=== PATIENT | female | born 1980 | race Caucasian/White ===

== ENCOUNTER → 2019-04-13 17:40 | Outpatient (CLI) | payer BC, SELFPAY ==
--- NOTE | ~2019-04-13 | MR_ITS ---
EXAMINATION: MR ankle LT wo con DATE: 04/13/2019 18:27 INDICATION: Left ankle pain with pain at the left ankle joint and joints of the left foot. TECHNIQUE: Magnetic resonance imaging (MRI) of the left ankle was performed without intravenous contr ast. Sequences included sagittal, coronal, and axial proton-density weighted fast spin echo without a nd with fat saturation. COMPARISON: None. FINDINGS: Medial ankle ligaments: Deep and superficial deltoid ligaments as well as the spring ligament are normal. Lateral ankle ligaments: The anterior and posterior inferior tibiofibular ligaments are normal. The anterior talofibular, calc aneofibular and posterior talofibular ligaments are normal. Tendons: Achilles tendon is normal. The peroneus longus and brevis tendons are normal. There is however a low- lying peroneus brevis muscle belly with distalmost aspect of the myotendinous junction positioned jluis roximately 1.2 cm caudal to the tip of the lateral malleolus. There is mild edema along the myotendin ous junction of the peroneus brevis slightly cephalad to the level of the retromalleolar groove. The tibialis anterior and extensor hallucis longus and extensor digitorum longus tendons are normal. The tibialis posterior, flexor digitorum longus and flexor hallucis longus tendons are normal. Plantar fascia: Panter aponeurosis is normal. Bones/other: Bone alignment is normal. No fracture. There is prominent marrow edema in the calcaneus and talus charli tered about the posterior facet of the subtalar joint. There is irregular contour to the cartilage an d articular cortex along the majority of the of both articular surfaces. This could be related to ost eoarthritis with extensive high-grade chondromalacia and marginal hypertrophic osteophyte formation. The appearance however also suggests possibility of a cartilaginous coalition particularly towards th e medial side of the joint line continuing to where the talus appears to articulate with the posterio r margin of the sustentaculum adri. Remaining joint spaces at the ankle, mid and hindfoot appear rela tively preserved. Small enthesophytes at the calcaneal insertion of the Achilles tendon. Fluid: Physiologic amount of fluid in the joint spaces with amount of fluid and mild synovitis at the representative personal service ior recess of the ankle and subtalar joints which surrounds a normal os trigonum which lies adjacent to marginal osteophytes at the posterior aspect of the subtalar joint. Appearance raises the possibil ity of posterior hindfoot impingement. Small ganglion cyst which appears to arise from the posteromed ial aspect of the tibiotalar joint which extends between the flexor digitorum longus and flexor hallu cis longus tendon. IMPRESSION: 1. Prominent marrow edema along both sides of the subtalar joint where there is arthritis with both i rregular cartilage and cortical contours consistent with high-grade chondromalacia. Appearance partic ularly at the medial side of the joint spaces overall also raises the concern for at least partial ca rtilaginous talocalcaneal coalition. 2. Low-lying peroneus brevis muscle belly with mild muscular edema along the myotendinous junction. P eroneal tendons however remain normal. 3. Appearance suggestive of possible posterior hindfoot impingement. Reviewed, dictated and finalized at location A. ROAD CONSTRUCTION DIRECTOR IMPRESSION: 1. Prominent marrow edema along both sides of the subtalar joint where there is arthritis with both irregular cartilage and cortical contours consistent with high-grade chondromalacia. Appearance particularly at the medial side of the elpidio int spaces overall also raises the concern for at least partial cartilaginous t alocalcaneal coalition. 2. Low-lying peroneus brevis muscle belly with mi
== END ==
PROVIDERS: Visit Provider Orthopaedic Surgery
DX: M25.572 Pain in left ankle and joints of left foot (principal); R93.6 Abnormal findings on diagnostic imaging of limbs
CPT/HCPCS: 73721

== ENCOUNTER 2019-07-15 00:14 | Outpatient (CLI) | payer BC, SELFPAY ==
[2019-07-15 15:54] LABS: SARS-CoV-2 RNA PCR Negative
== END 2019-07-15 00:15 | disposition home or self-care (01) ==
PROVIDERS: PCP Family Medicine; Visit Provider Orthopaedic Surgery
DX: Z01.818 Encounter for other preprocedural examination (principal); Z11.59 Encounter for screening for other viral diseases
CPT/HCPCS: 87635; C9803; U0003

== ENCOUNTER 2019-07-18 03:07 | Day surgery (SDC) | payer BC, SELFPAY ==
[2019-07-06 14:30] VITALS: BMI 39.0
[2019-07-18] VITALS (7 sets, daily range): BP systolic 97–133; BP diastolic 62–93; PULSE 63–78; RESP 16–20; TEMP 36.8; O2SAT 95–100
[2019-07-18] MEDS: LACTATED RINGERS 1,000 ML 30 ML IV CONT (11:40)
--- NOTE | 2019-07-18 11:46 | WPDHPUPDATE1 ---
History and Physical Update Update Date/Time: 07/18/19 11:46 History and Physical has been reviewed, including an updated exam of the patient. There are NO changes in the patient's condition. Risks, benefits, and alternatives have been discussed and questions answered. Patient agrees to proceed with procedure. Exam Const Constitutional General: healthy appearing; No in distress or confusion Orientation/consciousness: oriented to person, oriented to place, oriented to time and No confusion HENMT Head: normal to inspection, normocephalic and atraumatic Eyes Conjunctivae: Yes conjunctivae normal Sclera: sclerae normal Neck Neck: Yes supple and No tender Chest Chest palpation & inspection: normal inspection of the chest Resp Effort & Inspection: normal respiratory effort and no audible wheezes Cardio Rate: Yes regular rate Rhythm: regular rhythm Skin General skin exam: no rashes or lesions noted Neuro General: Yes oriented to person, Yes oriented to place, Yes oriented to time and No confusion Extrem Right upper extremity: normal to inspection Left upper extremity: normal to inspection Other: Foot/ ankle exam Right location Right inspection nml Right stability good Left location Left inspection nml Left stability good Tests Right external rotation negative Right flexor hallucis longus triggering negative Right Nancy?s sign negative Right Midfoot compression negative Right MTP Jonas?s negative Right Peroneal subluxation negative Right Single toe raise negative Right Dejesus?s negative Left external rotation positive Left flexor hallucis longus triggering negative Left Nancy?s sign negative Left Midfoot compression negative Left MTP Jonas?s negative Left Peroneal subluxation positive Left Single toe raise positive Left Dejesus?s negative Right Anterior drawer normal Right Talar tilt normal Right Subtalar tilt normal Right Nav?s test negative Left Anterior drawer normal Left Talar tilt normal Left Subtalar tilt decreased Left Nav?s test negative Other exams Comments: left ankle with moderate swelling peroneal tendon sheath. Tender to palpation. Pain with resisted Eversion . Peroneal strength 4/5 active ankle range of motion 0/ 40 , subtalar 10/5 . Passive ankle motion 0/45 , subtalar 10/5. Psych Affect: Yes normal affect Assessment & Plan (1) Peroneal tendinitis of left lower leg: Code(s): M76.72 - Peroneal tendinitis, left leg Category: Medical Plan: Three months more of conservative treatment. Patient with no improvement. Continues to have pain and swelling over the posterolateral left ankle.Discussed nonoperative and operative treatment options with the patient. Risks and benefits of each as well as alternatives were reviewed. All of the patient's questions were answered. The risks of surgery reviewed including but not limited to: Neurovascular damage, wound complication, infection, blood clot, pulmonary embolus, stroke, myocardial infarction, and anesthetic risks up to and including . Continued pain and possible dysfunction were explained. Specific risks of the procedure including later recurrence of deformity. No guarantees were offered. If hardware used, discussed risk of failure/ breakage and possible need for removal. If complications occur, the patient understands the need for further treatment, possible further surgery. Patient verbalizes understanding and wishes to proceed. PLAN: left ankle peroneal tendon reconstruction (2) Arthritis of left subtalar joint: Code(s): M19.072 - Primary osteoarthritis, left ankle and foot Category: Medical Plan: Discussed condition with the patient. The nonoperative and operative treatment options reviewed. Risks and benefits of Cortisone injection as well as alternatives were reviewed. All of the patient's questions were answered. The risks of injection were reviewed i
[2019-07-18] MEDS: IBUPROFEN IV 800 MG/200 ML 800 MG/200 ML BAG 400 MG IVPB (11:50)
--- NOTE | 2019-07-18 12:35 | P.PNAN_ITS ---
Anes - Initial Pre Proc Eval Procedure: Operation Date: 07/18/19 13:00 Proposed Procedures p Left Ankle Peroneal Tendon Reconstruction, Subtalar And Posterior Cortisone Joint Injection - Dayron Gutiérrez MD Date/Time: 07/18/19 12:35 Surgeon: Dayron Gutiérrez MD Pre Op Diagnosis: Left Aknle Perineal Tendon Tear/Subtalar Arthritis Patient Data Age: 38 Gender: F Height: 5 ft 3 in Weight: 108 kg Last Vital Signs Temp 98.2 F 07/18/19 12:00 Pulse 72 07/18/19 12:00 Resp 20 07/18/19 12:00 BP 133/84 07/18/19 12:00 Pulse Ox 100 07/18/19 12:00 Allergies Allergy/AdvReac Type Severity Reaction Status Date / Time dextromethorphan AdvReac Intermediate SHORTNESS Verified 07/12/19 11:10 OF BREATH Home Medications Medication Instructions Recorded Confirmed Type bupropion HCl 150 mg 24 hr tablet, 150 mg PO QAM 12/20/18 07/18/19 History extended release sertraline 100 mg tablet 100 mg PO DAILY 12/20/18 07/18/19 History Patient hx anesthesia problems: none Family hx anesthesia problems: none [facility] Social History Social History Smoking status: Never smoker Alcohol intake: current Substance use: unknown Gender identity (if verbalized by the patient): Female Anes - Eval Final PreProcedure Day of Procedure 07/18/19 12:35 Patient weight: morbidly obese Heart: regular rate and rhythm Lungs: clear to auscultation Airway: Mallampati scale class II Neurological: alert and oriented Last oral intake: >/= 8 hours ASA classification: III Emergent: no Anesthetic plan: proceed Anesthesia type and monitoring: general LMA and standard monitoring Informed Consent: The patient's anesthetic plan and its attendant risks and benefits were discussed with the patient/family/POA. Questions were solicited and answers provided to the satisfaction of the patient/family/POA.
[2019-07-18] MEDS: ceFAZolin 2 GM/D5W 50 ML 2 GM/50 ML BAG IVPB (12:40)
[2019-07-18] MEDS: methylPREDNISolone ACETATE 80 MG/ML VIAL IM (13:18)
--- NOTE | 2019-07-18 14:09 | P.OP_ITS ---
Procedure Note - Detailed Date of procedure: 07/18/19 Pre-op diagnosis: Left Aknle Perineal Tendon Tear/Subtalar Arthritis Post-op diagnosis: same Procedure performed: Left ankle peroneal tendon reconstruction, cortisone injection subtalar joint Description of procedure: Indications: Patient is a 38-year-old woman with left ankle pain. Exam findings consistent with peroneal tendon dysfunction. Responded well to cortisone injection. MRI shows inflammation. MRI also shows degenerative changes of the subtalar joint. She has failed conservative treatment with bracing, therapy, injections and presents now for operative treatment. What was done: Patient identified in the preoperative holding. Informed consent given. Operative extremity marked. Patient received intravenous antibiotics. Patient brought to the operating room where underwent general anesthetic by anesthesia team. Positioned supine on operating room table. Time-out performed confirming the patient, site of the surgery and the plan. Bump placed under the left hip. Left lower extremity prepped draped usual sterile surgical fashion using ChloraPrep skin solution. Foot and ankle exsanguinated and a thigh tourniquet inflated to 250 mmHg. Local anesthetic with 0.5% Marcaine plain. Curvilinear incision made over the lateral ankle posterior to the fibula extending to the peroneal tubercle of the calcaneus. This done with a 15 blade knife. Hemostasis controlled electrocautery. A torturous vein noted at the retro fibular area. This was ligated at the distal extent and removed with Bovie cautery. Peroneal tendon sheath then incised in line with skin incision. Peroneals inspected. Peroneal brevis noted to have a split partial tear at the retro fibular area involving approximately 20% of the tendon. Torn portion excised with 15 blade knife. Peroneus longus noted to have a low-lying muscle belly and significant synovitis. This was sharply removed with a 15 blade knife. Tourniquet was released and bleeding points were coagulated. Tendon sheath thoroughly irrigated with antibiotic solution. Sheath closed with 3 Monocryl interrupted suture. Subcutaneous tissue repaired with 3 0 Monocryl interrupted suture and skin repaired with 3 Monocryl running subcuticular stitch. Steri-Strips applied to the skin. 22 gauge needle was then used to inject 40 mg of Depo-Medrol into the subtalar joint from the sinus tarsi. 40 mg Depo-Medrol injected into the retrocalcaneal bursa. Sterile dressing applied followed by a well-padded splint. The patient was then woken from anesthesia, extubated and taken to the recovery room in stable condition. All sponge, needle, instrument counts were correct at the end of the case. Implants: None Anesthesia: GLMA Surgeon: Dayron Gutiérrez MD Bradley Linebacker Crewmember: 1st leasing assistant Estimated blood loss (mL): 10 Tourniquet time (min): 15 Drains: No Packing: No Pathology: none sent Complications: None Condition: stable Disposition: PACU
== END 2019-07-18 15:20 | disposition home or self-care (01) ==
PROVIDERS: PCP Family Medicine; Visit Provider Orthopaedic Surgery
PROC: (CPT 27650; principal; 2019-07-18 13:00)
DX: M66.372 Spontaneous rupture of flexor tendons, left ankle and foot (principal); M76.72 Peroneal tendinitis, left leg; M19.072 Primary osteoarthritis, left ankle and foot; E66.01 Morbid (severe) obesity due to excess calories; Z68.41 Body mass index [BMI] 40.0-44.9, adult
CPT/HCPCS: 28200; J0690; J1040; J1741; J2250; J2704; J3010; J7120

== ENCOUNTER 2020-02-20 11:28 | Outpatient (CLI) | payer BC, SELFPAY ==
--- NOTE | ~2020-02-20 | XR_ITS ---
EXAMINATION: XR knee LT min 4V DATE: 02/20/2020 11:57 INDICATION: Left knee pain. TECHNIQUE: 4 views of left knee were obtained. COMPARISON: None. FINDINGS: Bone alignment is normal. No fracture. There is mild tricompartmental osteoarthritis. There is a small knee joint effusion. IMPRESSION: 1. Mild left knee osteoarthritis. 2. Small left knee joint effusion. Reviewed, dictated and finalized at location A. WORKING MACHINE OFFBEARER
== END 2020-02-20 11:29 | disposition home or self-care (01) ==
LOC: ANHIMG 11:32
PROVIDERS: PCP Family Medicine; Visit Provider Family Medicine
DX: M17.12 Unilateral primary osteoarthritis, left knee (principal); M25.462 Effusion, left knee
CPT/HCPCS: 73564

== ENCOUNTER → 2020-07-09 02:12 | Outpatient (CLI) | payer BC, SELFPAY ==
[2020-07-09 17:04] LABS: SARS-CoV-2 RNA PCR Negative
== END ==
PROVIDERS: PCP Family Medicine; Visit Provider Orthopaedic Surgery
DX: Z01.812 Encounter for preprocedural laboratory examination (principal); Z20.822 Contact with and (suspected) exposure to COVID-19
CPT/HCPCS: C9803; U0003; U0005

== ENCOUNTER 2020-07-12 01:01 | Day surgery (SDC) | payer BC, SELFPAY ==
[2020-07-02 15:33] VITALS: BMI 38.7
[2020-07-12] VITALS (9 sets, daily range): BP systolic 99–128; BP diastolic 71–92; PULSE 76–90; RESP 14–20; TEMP 36.1–36.4; O2SAT 93–99
--- NOTE | ~2020-07-12 | XR_ITS ---
EXAMINATION: XR surgery orthopedic DATE: 07/12/2020 08:57 INDICATION: Excision/debridement of the left foot TECHNIQUE: 2 fluoroscopic images of the left hindfoot were obtained during procedure performed by Dr. Gutiérrez. Radiologist was not present for the imaging or procedure. The amount of fluoroscopy time us ed during this procedure was 0.1 minutes. COMPARISON: None. FINDINGS: Interval resection of a prior prominent os trigonum with small amount of tissue gas at the operative bed. Alignment is normal. No fracture. Peripheral portions of the joint spaces appear normal. Tiny Ac hilles and plantar calcaneal spurs. IMPRESSION: 1. Fluoroscopy utilized during resection of an os trigonum. See procedure note for further detail. Reviewed, dictated and finalized at location A.
[2020-07-12] MEDS: ACETAMINOPHEN 500 MG TABLET 1000 MG PO (06:42)
[2020-07-12] MEDS: LACTATED RINGERS 1,000 ML 30 ML IV CONT (06:45)
[2020-07-12] MEDS: KETOROLAC 15 MG/ML VIAL (*BKC) IV PUSH (06:50)
--- NOTE | 2020-07-12 07:02 | WPDANESEPPF ---
Anes - Initial Pre Proc Eval Procedure: Operation Date: 07/12/20 07:30 Proposed Procedures p Left Os Trigonum Excision, Debride Subtalar Joint - Dayron Gutiérrez MD Date/Time: 07/12/20 07:02 Surgeon: Dayron Gutiérrez MD Pre Op Diagnosis: Left Os Trigonum Excision, Patient Data Age: 39 Gender: F Height: 5 ft 3 in Weight: 99.34 kg Allergies Allergy/AdvReac Type Severity Reaction Status Date / Time dextromethorphan Allergy Severe SHORTNESS Verified 07/12/20 06:36 OF BREATH/ELEVATED HR/ MASSIVE PANIC ATTACK Home Medications Medication Instructions Recorded Confirmed Type sertraline 100 mg tablet 100 mg PO DAILY 12/20/18 07/12/20 History bupropion HCl 150 mg 24 hr tablet, 300 mg PO QAM tablet 06/22/20 07/12/20 History extended release multivitamin 1 tablet PO DAILY 07/02/20 07/12/20 History Patient hx anesthesia problems: none Family hx anesthesia problems: none PMFSH Past Medical History Medical History Aftercare following surgery of the musculoskeletal system Anxiety Arthritis of left subtalar joint Chondromalacia Depression Effusion, left knee GERD (gastroesophageal reflux disease) IBS (irritable bowel syndrome) Impingement of left ankle joint Left knee pain Os trigonum syndrome Patellofemoral pain syndrome Retrocalcaneal bursitis Tendinitis of left flexor hallucis longus Weight gain Social History Social History Smoking packs per day: 0.5 Smoking cigarettes per day: 10.0 Years smoked: 19 Smoking pack-years: 9.50 Smoking status: Former smoker Smoking end date: 02/10/16 Alcohol intake: never Substance use: never Substance use type: does not use Living arrangements: with family Gender identity (if verbalized by the patient): Female Spiritual care concerns: No Anes - Eval Final PreProcedure Day of Procedure 07/12/20 07:02 Patient weight: obese Heart: regular rate and rhythm Lungs: decreased breath sounds Airway: Mallampati scale class II Neurological: alert and oriented Last oral intake: >/= 8 hours ASA classification: III Emergent: no Anesthetic plan: proceed Anesthesia type and monitoring: general LMA and standard monitoring Informed Consent: The patient's anesthetic plan and its attendant risks and benefits were discussed with the patient/family/POA. Questions were solicited and answers provided to the satisfaction of the patient/family/POA.
--- NOTE | 2020-07-12 07:03 | WPDHPUPDATE1 ---
History and Physical Update Update Date/Time: 07/12/20 07:03 History and Physical has been reviewed, including an updated exam of the patient. There are NO changes in the patient's condition. Covid test negative. Risks, benefits, and alternatives have been discussed and questions answered. Patient agrees to proceed with procedure.
[2020-07-12] MEDS: ceFAZolin 2 GM/D5W 50 ML 2 GM/50 ML BAG IVPB (07:24)
--- NOTE | 2020-07-12 07:41 | SUR.PREOP ---
0640-PT HAS SCABBED AREAS FROM SANDALS ON TOP OF BILATERAL FEET. SCABBED AREA ON OUTER RIGHT LOWER LEG FROM DOG . 0720-DR. TOURE AWARE OF ABOVE, NOTED AND WILL PROCEED.
[2020-07-12] MEDS: BUPIVACAINE HCL 0.5% PF 30 ML VIAL INFILTRATE (08:57)
--- NOTE | 2020-07-12 09:36 | P.OP_ITS ---
Procedure Note - Detailed Date of procedure: 07/12/20 Pre-op diagnosis: Left Os Trigonum Excision, Left ankle os trigonum syndrome, flexor hallucis longus tenosynovitis, subtalar chondromalacia. Post-op diagnosis: same Procedure performed: Left ankle excision of os trigonum, flexor hallucis longus tenosynovectomy, debridement subtalar joint. Description of procedure: Indications: Patient is a 39-year-old woman with posterior left ankle pain. MRI shows os trigonum inflammation consistent with os trigonum syndrome. Improved with diagnostic injection. Presents now for operative treatment having failed non operative treatment including physical therapy, bracing and activity modification. What was done: Patient identified in the preoperative holding. Informed consent given. Operative extremity marked. Patient received intravenous antibiotics. Patient brought to the operating room where underwent general anesthetic by anesthesia team. Positioned supine on operating room table. Time-out performed confirming the patient, site of the surgery and the plan. Left lower extremity prepped draped usual sterile surgical fashion using a ChloraPrep skin solution. Foot and ankle exsanguinated and a thigh tourniquet inflated to 250 mmHg. Medial approach was utilized. A curvilinear incision made posterior to the medial malleolus with a 15 blade knife. Hemostasis controlled electrocautery. Medial retinaculum incised line with skin incision. Care was taken to identify the neurovascular bundle which was retracted posteriorly along with the flexor hallucis longus tendon. This allowed access to the medial aspect of the posterior ankle and subtalar joint where a degenerative and inflamed appearing os trigonum was encountered. Soft tissue was freed up from the os trigonum this was removed in 1 large piece and several surrounding small osteophytes. This was passed off as specimen. Image intensification was used to confirm resection of all of the os trigonum. Posterior ankle joint appeared without defect. The posterior subtalar joint was then inspected noted to have degenerative changes. Rongeur was used to remove the osteophytes and degenerative portions of the posterior facet of subtalar joint. This was then thoroughly irrigated antibiotic solution. Flexor hallucis longus tendon was then inspected noted to have significant synovitis. This was resected with a 15 blade knife sharply. The hallux was taken through range of motion there was no impingement of the FHL. Thorough irrigation done once again. Soft tissue then closed with 3 0 Monocryl interrupted suture in the subcuticular area and for O nylon running suture for the skin. Sterile dressing applied. The patient was then woken from anesthesia, extubated and taken to the recovery room in stable condition. All sponge, needle, instrument counts were correct at the end of the case. Implants: None Anesthesia: GLMA Surgeon: Dayron Gutiérrez MD Stave Log Cut Off Saw Operator: 1st higher level teaching assistant Estimated blood loss (mL): 5 Tourniquet time (min): 60 Drains: No Packing: No Pathology: yes (Os trigonum) Complications: None Condition: stable Disposition: PACU
--- NOTE | 2020-07-12 09:38 | SUR.PHASEI ---
O2 removed at 0938.
== END 2020-07-12 10:47 | disposition home or self-care (01) ==
PROVIDERS: PCP Family Medicine; Visit Provider Orthopaedic Surgery
PROC: (CPT 28750; principal; 2020-07-12 07:30)
DX: M65.872 Other synovitis and tenosynovitis, left ankle and foot (principal); M94.272 Chondromalacia, left ankle and joints of left foot; M25.872 Other specified joint disorders, left ankle and foot; M19.072 Primary osteoarthritis, left ankle and foot; F41.8 Other specified anxiety disorders; Z87.891 Personal history of nicotine dependence; E66.9 Obesity, unspecified; Z68.41 Body mass index [BMI] 40.0-44.9, adult
CPT/HCPCS: 28120; 27680; 88304; 88309; 88311; A9270; J0690; J1100; J1885; J2250; J2405; J2704; J3010; J7120

== ENCOUNTER 2020-11-05 10:10 | Emergency (ER) | payer BC, SELFPAY ==
--- NOTE | ~2020-11-05 | XR_ITS ---
EXAMINATION: XR shoulder LT min 2V DATE: 11/05/2020 10:31 INDICATION: Posterior left shoulder pain post ground-level fall. TECHNIQUE: AP internally and externally rotated, AP oblique externally rotated and transscapular Y vi ews of the left shoulder were obtained. COMPARISON: None FINDINGS: Normal alignment. No fracture. Linear lucent vascular channel extending across inferior cortex of th e mid left clavicle which can be seen on chest radiograph dated 05/22/2015. Glenohumeral joint is norm al. Acromioclavicular joint is normal. Soft tissues are unremarkable. Visualized portion of the lungs are clear. IMPRESSION: Negative left shoulder radiographs. Reviewed, dictated and finalized at location A.
--- NOTE | ~2020-11-05 | XR_ITS ---
EXAMINATION: XR foot LT min 3V DATE: 11/05/2020 10:32 INDICATION: Pain at the proximal left great toe post fall TECHNIQUE: Dorsoplantar, two oblique and lateral views of the left foot were obtained. COMPARISON: None. FINDINGS: 40 degrees hallux valgus including mild lateral subluxation of the proximal phalanx. Bone alignment i s otherwise normal. No fracture. Joint spaces are normal. Soft tissues are unremarkable. No left ankl e joint effusion. IMPRESSION: 1. Hallux valgus. No acute osseous abnormality. Reviewed, dictated and finalized at location A.
[2020-11-05 10:37] VITALS: BP 123/89; PULSE 92; RESP 18; TEMP 36.7; O2SAT 100
--- NOTE | 2020-11-05 12:45 | ED.UPPEXIN ---
HPI - Extremity Injury (Upper) General Chief Complaint: Extremity Injury, Upper Stated Complaint: Left Shoulder Pain after Fall Time Seen by Provider: 11/05/20 12:27 Source: patient and family Mode of arrival: ambulatory Limitations: no limitations History of Present Illness HPI narrative: 39 years old white female tripped on her dog and fell down have, complaining of left shoulder pain, left forearm pain, denies any other injuries. No loss of consciousness. And 1/2-hour prior to arrival to the emergency room. Related Data Home Medications Medication Instructions Recorded Confirmed sertraline 100 mg tablet 100 mg PO DAILY 12/20/18 09/19/20 bupropion HCl 150 mg 24 hr tablet, 300 mg PO QAM tablet 06/22/20 09/19/20 extended release multivitamin 1 tablet PO DAILY 07/02/20 09/19/20 Allergies Allergy/AdvReac Type Severity Reaction Status Date / Time dextromethorphan Allergy Severe SHORTNESS Verified 11/05/20 11:01 OF BREATH/ELEVATED HR/ MASSIVE PANIC ATTACK Review of Systems Review of Systems: CONSTITUTIONAL: Denies fever, chills, or sweats. EYES: Denies visual changes, redness, or discharge. ENT: Denies rhinorrhea, congestion, sore throat, or otalgia. CARDIOVASCULAR: Denies chest pain, palpitations, or edema. RESPIRATORY: Denies cough or dyspnea. GASTROINTESTINAL: Denies abdominal pain, nausea, vomiting, or diarrhea. GENITOURINARY: Denies dysuria or hematuria. SKIN: Denies rash or itching. MUSCULOSKELETAL: Denies back pain, joint pain, or myalgia. NEUROLOGIC: Denies headache, numbness, or weakness. PSYCHIATRIC: Denies anxiety or depression. [facility] Past Medical History Medical History Aftercare following surgery of the musculoskeletal system Anxiety Arthritis of left subtalar joint Chondromalacia Depression Effusion, left knee GERD (gastroesophageal reflux disease) IBS (irritable bowel syndrome) Impingement of left ankle joint Left knee pain Os trigonum syndrome Patellofemoral pain syndrome Retrocalcaneal bursitis Tendinitis of left flexor hallucis longus Weight gain Social History Social History Smoking packs per day: 0.5 Smoking cigarettes per day: 10.0 Years smoked: 19 Smoking pack-years: 9.50 Smoking end date: 02/10/16 Alcohol intake: never Substance use: never Substance use type: does not use Gender identity (if verbalized by the patient): Female Spiritual care concerns: No Exam Narrative: General appearance: Well-developed, well-nourished Skin: Normal color Head: Normocephalic, nontraumatic Eyes: Clear conjunctiva ENT: Oropharynx normal, ears normal, nose normal Neck: Supple, nontender Chest and respiratory: Airway patent, no respiratory distress, no accessory muscle use Heart: Regular rate/rhythm Abdomen: Soft, nontender, no organomegaly, quiet bowel sounds Vascular: Normal peripheral pulses, normal capillary refill. Musculoskeletal: Mild diffuse tenderness deltoid area at the left shoulder. No bruises, no swelling or deformity. Diffuse tenderness of medial side of left foot at the bunion area, slightly bruised, no deformity Neurologic: Alert and oriented ?3, SEWER DIGGER is normal as tested, no gross motor deficit Course Course Emergency Course: Stable Vital Signs Vital signs: Vital Signs Temperature 36.7 C 11/05/20 10:37 Pulse Rate 92 11/05/20 10:37 Respiratory Rate 18 11/05/20 10:37 Blood Pressure 123/89 11/05/20 10:37 Pulse Oximetry 100 11/05/20 10:37 Temperature 36.7 C 11/05/20 10:37 Pulse Rate 92 11/05/20 10:37 Respiratory Rate 18
[2020-11-05] MEDS: IBUPROFEN 600 MG TABLET PO (13:12)
[2020-11-05] MEDS: ACETAMINOPHEN 325 MG TABLET 650 MG PO (13:12)
== END 2020-11-05 14:32 | disposition home or self-care (01) ==
PROVIDERS: Emergency Provider Emergency Medicine; PCP Family Medicine
DX: S40.012A Contusion of left shoulder, initial encounter (principal); S90.32XA Contusion of left foot, initial encounter; F32.9 Major depressive disorder, single episode, unspecified; F41.9 Anxiety disorder, unspecified; K58.9 Irritable bowel syndrome, unspecified; M19.072 Primary osteoarthritis, left ankle and foot; F17.210 Nicotine dependence, cigarettes, uncomplicated; M20.12 Hallux valgus (acquired), left foot; W01.0XXA Fall on same level from slipping, tripping and stumbling without subsequent striking against object, initial encounter
CPT/HCPCS: 73030; 73630; 99284; A9270

== ENCOUNTER 2020-11-08 17:14 | Emergency (ER) | payer BC, SELFPAY ==
--- NOTE | 2020-11-08 17:18 | ED.UPPEXIN ---
HPI - Extremity Injury (Upper) General Chief Complaint: Extremity Injury, Upper Stated Complaint: left shoulder pain Time Seen by Provider: 11/08/20 17:18 Source: patient, RN notes reviewed and old records reviewed (ER from 927, x-ray from 927) Mode of arrival: ambulatory Limitations: no limitations History of Present Illness HPI narrative: 39-year-old female presents to the [facility] with complaints of left lateral shoulder pain. Patient reports that her dog dragged her down a hill on 05 November, 3 days ago. Has been taking Aleve using ice and heat. complaint: injury to: shoulder Related Data Home Medications Medication Instructions Recorded Confirmed sertraline 100 mg tablet 100 mg PO DAILY 12/20/18 09/19/20 bupropion HCl 150 mg 24 hr tablet, 300 mg PO QAM tablet 06/22/20 09/19/20 extended release multivitamin 1 tablet PO DAILY 07/02/20 09/19/20 ergocalciferol (vitamin D2) 11/08/20 Allergies Allergy/AdvReac Type Severity Reaction Status Date / Time dextromethorphan Allergy Severe SHORTNESS Verified 11/05/20 11:01 OF BREATH/ELEVATED HR/ MASSIVE PANIC ATTACK Review of Systems Review of Systems: All systems reviewed & are unremarkable except as noted in HPI and below Constitutional: Constitutional: Reports no additional constitutional complaints Eyes: Eyes: Reports no additional eye complaints ENT: Reports system reviewed and no additional complaints, except as documented Cardiovascular: Cardiovascular: Reports no additional cardiovascular complaints and Denies chest pain Respiratory: Respiratory: Reports no additional respiratory complaints Musculoskeletal: Musculoskeletal: Reports as per HPI Comments: Left lateral shoulder pain Integumentary/Breasts: Skin/Breast: Reports system reviewed and no additional complaints, except as docu Neurologic: Reports system reviewed and no additional complaints, except as documented Psychiatric: Psychiatric: Reports no additional psychiatric complaints Allergic/Immunologic: Allergic/Immunologic: Reports no additional allergic/immunologic complaints PMFSH Past Medical History Medical History Aftercare following surgery of the musculoskeletal system Anxiety Arthritis of left subtalar joint Chondromalacia Depression Effusion, left knee GERD (gastroesophageal reflux disease) IBS (irritable bowel syndrome) Impingement of left ankle joint Left knee pain Os trigonum syndrome Patellofemoral pain syndrome Retrocalcaneal bursitis Tendinitis of left flexor hallucis longus Weight gain Social History Social History Smoking packs per day: 0.5 Smoking cigarettes per day: 10.0 Years smoked: 19 Smoking pack-years: 9.50 Smoking end date: 02/10/16 Alcohol intake: never Substance use: never Substance use type: does not use Gender identity (if verbalized by the patient): Female Spiritual care concerns: No Comments At the time of my signature, I reviewed and agree with the nursing past medical, surgical, social, and family history. There is no relevant family history pertinent to the patient complaint. Exam Const: General: healthy appearing, no acute distress and alert Nutritional Appearance: obese Orientation/consciousness: patient oriented x3 Limitations: no limitations HENMT: Head: normal to inspection Eyes: Conjunctivae: conjunctivae normal Pupils: Equal, round and reactive pupils present Neck: Neck: normal visual inspection, no lymphadenopathy and no meningeal signs Chest: Chest palpation & inspection: normal inspection of the chest Resp: Effort & Inspection: normal respiratory effort and no use of accessory muscles Auscultation: clear to auscultation bilaterally, no crackles, no rales, no rhonchi and no wheezes Cardio: Rate: regular rate Rhythm: regular rhythm Back/Spine/Pelvis: Back: no CVA tenderne
[2020-11-08 17:20] VITALS: BP 125/82; PULSE 81; RESP 16; TEMP 36.6; O2SAT 99
[2020-11-08 17:21] VITALS: BP 125/82; PULSE 81; RESP 16; TEMP 36.6; O2SAT 99
== END 2020-11-08 17:30 | disposition home or self-care (01) ==
PROVIDERS: Emergency Provider Nurse Practitioner
DX: M25.512 Pain in left shoulder (principal); F17.210 Nicotine dependence, cigarettes, uncomplicated; F41.9 Anxiety disorder, unspecified; F32.9 Major depressive disorder, single episode, unspecified; M19.072 Primary osteoarthritis, left ankle and foot
CPT/HCPCS: 99213; G0463

== ENCOUNTER → 2020-12-27 15:27 | Outpatient (CLI) | payer BC, SELFPAY ==
--- NOTE | ~2020-12-27 | MR_ITS ---
EXAMINATION: MR shoulder LT wo con DATE: 12/27/2020 16:08 INDICATION: Left shoulder pain TECHNIQUE: Magnetic resonance imaging (MRI) of the left shoulder was performed without intravenous co ntrast. Sequences included axial PD-weighted FS FSE, coronal oblique PD-weighted FS FSE, coronal obli que T2-weighted FS FSE, sagittal PD-weighted FS FSE, and sagittal T1-weighted SE. COMPARISON: None. FINDINGS: Coracoacromial arch: The acromion undersurface is curved in morphology (type II). The coracoacromial ligament is normal. M ild acromioclavicular osteoarthritis. Rotator cuff: Mild supraspinatus and infraspinatus tendinopathy. While no discrete supraspinatus or infraspinatus f luid signal intensity tear defect is identified, there is prominent thickening of the rotator cable o ften coincides with partial thickness tears along the articular side of the tendon. The teres minor a nd subscapularis tendons are normal. Normal rotator cuff muscle bulk and signal. Biceps tendon, glenoid labrum and glenohumeral cartilage: Long head of the biceps tendon is normal. Subtle linear increased signal extending laterally into the superior labrum at the 12:00 position consistent with small SLAP tear. Glenohumeral cartilage is nor mal. Fluid: Small glenohumeral joint effusion with proportional extension of a small amount of fluid into the adolfo g head biceps tendon sheath. No loose osteochondral bodies. Small amount of fluid in the subacromial/ subdeltoid bursa consistent with mild bursitis. Bones: Normal marrow signal with no edema, fracture or abnormal marrow replacing process. IMPRESSION: 1. Mild supraspinatus and infraspinatus tendinopathy without definitive tear however there is thicken ing of the rotator cable which can be a sign of partial-thickness articular sided tears occult on non ABER imaging. 2. Small SLAP tear at the 12:00 position of the glenoid labrum. 3. Small glenohumeral joint effusion and mild subacromial/subdeltoid bursitis. Reviewed, dictated and finalized at location A. GRADER OPERATOR IMPRESSION: 1. Mild supraspinatus and infraspinatus tendinopathy without definitive tear ho wever there is thickening of the rotator cable which can be a sign of partial-t hickness articular sided tears occult on non ABER imaging. 2. Small SLAP tear at the 12:00 position of the glenoid labrum. 3. Small glenohumeral joint effusion and mild subacromial/subdeltoid bursitis.
== END ==
PROVIDERS: Visit Provider Nurse Practitioner Family
DX: S43.432A Superior glenoid labrum lesion of left shoulder, initial encounter (principal); X58.XXXA Exposure to other specified factors, initial encounter; M25.412 Effusion, left shoulder; M75.52 Bursitis of left shoulder
CPT/HCPCS: 73221

== ENCOUNTER 2021-09-13 07:24 | Emergency (ER) | payer BC, SELFPAY ==
[2021-09-13 07:28] VITALS: BP 134/103; PULSE 87; RESP 16; TEMP 36.7; O2SAT 100
--- NOTE | 2021-09-13 07:42 | ED.EYEPROB ---
HPI - Eye Problem General Chief complaint: Eye Problems Stated complaint: hit left eye yesterday cant open it today Time Seen by Provider: 09/13/21 07:27 Source: RN notes reviewed History of Present Illness HPI Narrative: Patient presents emergency department from home for left eye pain. Patient states that yesterday afternoon around 1:00 she was opening a package and a piece of plastic came back and snapped back and hit her in the eye states that time she did not have a lot of pain but the pain began to recur last night and this morning the pain was severe she was unable to open her eye she denies anything being stuck in her eye she denies any any other injury she denies any vision changes she states that she does not wear glasses or contacts Related Data Home Medications Medication Instructions Recorded Confirmed sertraline 100 mg tablet (Zoloft) 100 mg PO DAILY 12/20/18 12/18/20 bupropion HCl 150 mg 24 hr tablet, 300 mg PO QAM 06/22/20 12/18/20 extended release (Wellbutrin XL) multivitamin 1 tablet PO DAILY 07/02/20 12/18/20 ergocalciferol (vitamin D2) 1,250 11/08/20 12/18/20 mcg (50,000 unit) capsule Allergies Allergy/AdvReac Type Severity Reaction Status Date / Time dextromethorphan Allergy Severe SHORTNESS Verified 03/12/21 13:35 OF BREATH/ELEVATED HR/ MASSIVE PANIC ATTACK Review of Systems Review of Systems: Gen.: Denies fevers or chills HEENT: See HPI Neuro: Denies numbness, tingling, weakness Skin: Denies rash Endo: Denies DM PMF Past Medical History Medical History Aftercare following surgery of the musculoskeletal system Anxiety Arthritis of left subtalar joint Chondromalacia Depression Effusion, left knee GERD (gastroesophageal reflux disease) IBS (irritable bowel syndrome) Impingement of left ankle joint Injury of left shoulder Left knee pain Left shoulder pain Os trigonum syndrome Patellofemoral pain syndrome Retrocalcaneal bursitis Rotator cuff tear Rotator cuff tendonitis Tendinitis of left flexor hallucis longus Weight gain Social History Social History Smoking packs per day: 0.5 Smoking cigarettes per day: 10.0 Years smoked: 19 Smoking pack-years: 9.50 Smoking end date: 02/10/16 Alcohol intake: never Substance use: never Substance use type: does not use Gender identity (if verbalized by the patient): Female Spiritual care concerns: No Exam Narrative: APPEARANCE: No acute distress, nontoxic, resting in bed Eyes: EOMI, PERRL, no swelling of the upper or lower eyelid on the left, left eye with mild conjunctival erythema there is a corneal abrasion seen with fluorescein stain in the 3 o'clock position no foreign body seen HEENT: Normocephalic, atraumatic, RESPIRATORY: No respiratory distress MUSCULOSKELETAl: Moves all extremities NEURO: Awake and alert. Following commands, speech normal, no focal deficits SKIN:: Warm, dry. Normal Color no rash or lesions Course Course Emergency Course: Discussed with patient results of workup and diagnosis. Discussed need for follow-up with primary care, proper use of medication, and reasons to return to the emergency department. Patient understands and agrees to current treatment plan Vital Signs Vital signs: Vital Signs Temperature 98.1 F 09/13/21 07:28 Pulse Rate 87 09/13/21 07:28 Respiratory Rate 16 09/13/21 07:28 Blood Pressure 134/103 H 09/13/21 07:28 Pulse Oximetry 100 09/13/21 07:28 Oxygen Delivery Room Air 09/13/21 07:28 Temperature 98.1 F 09/13/21 07:28 Pulse Rate 87 09/13/21 07:28 Respiratory Rate 16 09/13/21 07:28 Blood Pressure 134/103 H 09/13/21 07:28 Pulse Oximetry 100 09/13/21 07:28 Oxygen Delivery Room Air 09/13/21 07:28 Discharge Plan Discharge Clinical Impression: Abrasion, corneal Qualifiers: Encounter type:
[2021-09-13] MEDS: ERYTHROMYCIN OPHTH OINTMENT 1 GM TUBE 1 APPLIC EACH EYE (07:50)
[2021-09-13] MEDS: IBUPROFEN 600 MG TABLET PO (07:50)
== END 2021-09-13 08:02 | disposition home or self-care (01) ==
PROVIDERS: Emergency Provider Emergency Medicine; PCP Student in an Organized Health Care Education/Training Program
DX: S05.02XA Injury of conjunctiva and corneal abrasion without foreign body, left eye, initial encounter (principal); K21.9 Gastro-esophageal reflux disease without esophagitis; K58.9 Irritable bowel syndrome, unspecified; F41.9 Anxiety disorder, unspecified; M19.072 Primary osteoarthritis, left ankle and foot; Z87.891 Personal history of nicotine dependence; W22.8XXA Striking against or struck by other objects, initial encounter
CPT/HCPCS: 99283; A9270

== ENCOUNTER 2021-11-08 09:37 | Emergency (ER) | payer BC, SELFPAY ==
[2021-11-08 09:46] VITALS: BP 104/63; PULSE 85; RESP 16; TEMP 36.8; O2SAT 100
--- NOTE | 2021-11-08 10:20 | ED.EAR ---
HPI - Ear Problem General Chief complaint: Ear Stated complaint: Right ear pain and pressure Time Seen by Provider: 11/08/21 10:21 Source: patient, RN notes reviewed and old records reviewed Mode of arrival: ambulatory Limitations: no limitations History of Present Illness HPI Narrative: 40-year-old female presents to the [facility] with right ear pressure and jaw pain. States she bit into something a couple of days ago and felt a popping in the right ear. Was concerned for an ear infection. Has a history of TMJ. No treatment prior to arrival MD Complaint: ear pain Related Data Home Medications Medication Instructions Recorded Confirmed sertraline 100 mg tablet (Zoloft) 100 mg PO DAILY 12/20/18 11/08/21 bupropion HCl 150 mg 24 hr tablet, 300 mg PO QAM 06/22/20 11/08/21 extended release (Wellbutrin XL) multivitamin 1 tablet PO DAILY 07/02/20 11/08/21 lisdexamfetamine 50 mg capsule 50 mg DIRECTED 11/08/21 11/08/21 (Vyvanse) Allergies Allergy/AdvReac Type Severity Reaction Status Date / Time dextromethorphan Allergy Severe SHORTNESS Verified 03/12/21 13:35 OF BREATH/ELEVATED HR/ MASSIVE PANIC ATTACK Review of Systems Review of Systems: All systems reviewed & are unremarkable except as noted in HPI and below Constitutional: Constitutional: Reports no additional constitutional complaints, Denies chills and Denies fever(s) Eyes: Eyes: Reports no additional eye complaints ENT: Reports as per HPI, Denies change in voice, Denies dental pain, Denies vertigo, Denies dizziness and Denies throat swelling Comments: Ear pain right/ righ jaw pain Cardiovascular: Cardiovascular: Reports no additional cardiovascular complaints, Denies chest pain and Denies dyspnea Respiratory: Respiratory: Reports no additional respiratory complaints, Denies cough and Denies dyspnea Gastrointestinal: Gastrointestinal: Reports no additional gastrointestinal complaints, Denies abdominal pain, Denies nausea and Denies vomiting Musculoskeletal: Musculoskeletal: Reports no additional musculoskeletal complaints Integumentary/Breasts: Skin/Breast: Reports system reviewed and no additional complaints, except as docu Neurologic: Reports system reviewed and no additional complaints, except as documented, Denies vertigo and Denies dizziness Psychiatric: Psychiatric: Reports no additional psychiatric complaints Allergic/Immunologic: Allergic/Immunologic: Reports no additional allergic/immunologic complaints and Denies throat swelling PMFSH Past Medical History Medical History Aftercare following surgery of the musculoskeletal system Anxiety Arthritis of left subtalar joint Chondromalacia Depression Effusion, left knee GERD (gastroesophageal reflux disease) IBS (irritable bowel syndrome) Impingement of left ankle joint Injury of left shoulder Left knee pain Left shoulder pain Os trigonum syndrome Patellofemoral pain syndrome Retrocalcaneal bursitis Rotator cuff tear Rotator cuff tendonitis Tendinitis of left flexor hallucis longus Weight gain Social History Social History Smoking packs per day: 0.5 Smoking cigarettes per day: 10.0 Years smoked: 19 Smoking pack-years: 9.50 Smoking end date: 02/10/16 Alcohol intake: never Substance use: never Substance use type: does not use Gender identity (if verbalized by the patient): Female Spiritual care concerns: No Comments At the time of my signature, I reviewed and agree with the nursing past medical, surgical, social, and family history. There is no relevant family history pertinent to the patient complaint. Exam Const: General: healthy appearing and no acute distress Nutritional Appearance: well nourished Orientation/consciousness: patient oriented x3 Limitations: no limitations HENMT: Head: normal to inspection Ears: e
== END 2021-11-08 10:37 | disposition home or self-care (01) ==
PROVIDERS: Emergency Provider Nurse Practitioner; PCP Student in an Organized Health Care Education/Training Program
DX: M26.621 Arthralgia of right temporomandibular joint (principal); Z87.891 Personal history of nicotine dependence; F41.9 Anxiety disorder, unspecified; F32.A Depression, unspecified; K21.9 Gastro-esophageal reflux disease without esophagitis
CPT/HCPCS: 99213; G0463

== ENCOUNTER 2022-03-02 08:21 | Emergency (ER) | payer BC, SELFPAY ==
[2022-03-02 08:24] VITALS: BP 144/86; PULSE 109; RESP 16; TEMP 36.2; O2SAT 99
[2022-03-02 09:59] LABS: Appearance Urine Cloudy (Clear); Basophils Percent Auto 0.2 % (0.2-1.2); Bilirubin Urine Negative (Negative); Blood Urine 1+ (Negative); Color Urine Yellow (Yellow); Eosinophils Absolute Auto 0.1 K/mm3 (0-0.3); Eosinophils Percent Auto 1.2 % (0-4.4); Glucose Urine UA Negative (Negative); Hematocrit 41.3 % (37.0-47.0); Hemoglobin 13.3 g/dL (12.0-15.0); Immature Granulocyte Absolute 0.01 K/mm3 (0.00-0.031); Immature Granulocyte Percent A 0.2 % (0-0.5); Ketones Urine Negative (Negative); Leukocyte Esterase Ur 1+ LEU/UL (Negative); Lymphocytes Absolute Auto 1.21 K/mm3 (0.9-3.2); Lymphocytes Percent Auto 20.6 % (18.3-44.2); Mean Corpuscular HGB Conc 32.2 g/dl (32-36); Mean Corpuscular Hemoglobin 28.3 pg (26-34); Mean Corpuscular Volume 87.9 fl (80-100); Mean Platelet Volume 10.1 fl (7.4-10.4); Monocytes Absolute Auto 0.5 K/mm3 (0.1-0.6); Monocytes Percent Auto 8.5 % (2.6-8.5); Neutrophils Absolute Auto 4.1 K/mm3 (1.3-6.7); Neutrophils Percent Auto 69.3 % (45.5-73.1); Nitrate Urine Negative (Negative); Platelet Count Result 218 k/mm3 (150-375); Protein Urine Trace mg/dL (Negative); Red Cell Distribution Width 13.3 % (11.5-14.5); Specific Grav Ur 1.025 (1.001-1.035); Urobilinogen Urine 0.2 mg/dL (<2.0); White Blood Count 5.9 K/mm3 (4.5-10.0); pH Urine 5.5 (5.0-9.0)
[2022-03-02 10:09] LABS: Bacteria Urine Trace /hpf; Mucus Urine Moderate /lpf; Squamous Epithelial Cell Urine Many /hpf (Few); WBC Urine 21-30 /hpf
[2022-03-02 10:12] LABS: Alanine Aminotransferase 20 U/L (6-35); Albumin Level 4.2 g/dL (3.5-5.1); Alkaline Phosphatase 60 U/L (38-126); Anion Gap 5 mmol/L (8-16); Aspartate Amino Transferase 25 U/L (14-36); Bilirubin,Total 0.4 mg/dL (0.2-1.3); Blood Urea Nitrogen 19 mg/dL (7-17); Calcium 7.9 mg/dL (8.4-10.2); Carbon Dioxide 28 mmol/L (22-30); Chloride 100 mmol/L (98-107); Estimated CRCL calculation 76 ml/min; Estimated Glomerular Filt Rate > 60; Glucose 112 mg/dL (65-110); Lipase 68 U/L (23-300); Potassium 3.6 mmol/L (3.4-5.0); Sodium 133 mmol/L (137-145)
[2022-03-02 10:22] LABS: Add Urine Microscopic? YES
[2022-03-02 10:35] LABS: Influenza A QL RT-PCR Negative (Negative); Influenza B QL RT-PCR Negative (Negative); SARS-CoV-2 RNA PCR Negative
[2022-03-02] MEDS: ONDANSETRON INJ 4 MG/2 ML VIAL IV PUSH (11:39)
[2022-03-02] MEDS: SODIUM CHLORIDE 0.9% IV 1,000 ML 999 ML IV CONT (11:39)
[2022-03-02] MEDS: DICYCLOMINE HCL INJ 20 MG/2 ML VIAL IM (11:39)
--- NOTE | 2022-03-02 12:35 | ED.ABDPAIN ---
HPI - Abdominal Pain General Chief Complaint: Abdominal Pain Stated Complaint: 24 hour stomach bug, abd pain, lower back pain Time Seen by Provider: 03/02/22 09:13 History of Present Illness HPI narrative: Patient is a 41-year-old female who presents ER with nausea/vomiting/diarrhea. Ongoing for last 24 hours. No fevers or chills or sweats. Began having body aches this morning as well as abdominal cramping but no additional loose stools. No urinary frequency urgency or dysuria. No alleviating factors that she is found at home. No known sick contacts. Related Data Home Medications Medication Instructions Recorded Confirmed sertraline 100 mg tablet (Zoloft) 100 mg PO DAILY 12/20/18 11/08/21 bupropion HCl 150 mg 24 hr tablet, 300 mg PO QAM 06/22/20 11/08/21 extended release (Wellbutrin XL) multivitamin 1 tablet PO DAILY 07/02/20 11/08/21 lisdexamfetamine 50 mg capsule 50 mg DIRECTED 11/08/21 11/08/21 (Vyvanse) Allergies Allergy/AdvReac Type Severity Reaction Status Date / Time dextromethorphan Allergy Severe SHORTNESS Verified 03/12/21 13:35 OF BREATH/ELEVATED HR/ MASSIVE PANIC ATTACK Review of Systems Review of Systems: All systems reviewed & are unremarkable except as noted in HPI and below Constitutional: Constitutional: Denies chills, Reports fatigue and Denies fever(s) ENT: Denies nasal congestion and Denies sore throat Cardiovascular: Cardiovascular: Denies chest pain, Denies rapid heart rate and Denies radiating jaw, neck or arm pain Respiratory: Respiratory: Denies cough, Denies dyspnea and Denies wheezing Gastrointestinal: Gastrointestinal: Reports abdominal pain, Reports diarrhea, Reports nausea and Reports vomiting Genitourinary: Genitourinary: Denies nocturia, Denies dysuria (Reports urine felt warm and urinating.) and Denies flank pain Musculoskeletal: Musculoskeletal: Reports back pain, Reports myalgias, Denies arthralgias and Denies joint swelling PMFSH Past Medical History Medical History Aftercare following surgery of the musculoskeletal system Anxiety Arthritis of left subtalar joint Chondromalacia Depression Effusion, left knee GERD (gastroesophageal reflux disease) IBS (irritable bowel syndrome) Impingement of left ankle joint Injury of left shoulder Left knee pain Left shoulder pain Os trigonum syndrome Patellofemoral pain syndrome Retrocalcaneal bursitis Rotator cuff tear Rotator cuff tendonitis Tendinitis of left flexor hallucis longus Weight gain Social History Social History Smoking packs per day: 0.5 Smoking cigarettes per day: 10.0 Years smoked: 19 Smoking pack-years: 9.50 Smoking end date: 02/10/16 Alcohol intake: never Substance use: never Substance use type: does not use Living arrangements: with family Gender identity (if verbalized by the patient): Female Spiritual care concerns: No Exam Narrative: GENERAL: Well-appearing, obese, and in no acute distress. HEAD: Normocephalic, atraumatic. ENT: Mucous membranes moist. CHEST: Clear to auscultation. No respiratory distress. HEART: Regular rate and rhythm. Normal peripheral pulses. ABDOMEN: Soft, nontender, nondistended. EXTREMITIES: Normal range of motion. No edema. SKIN: Warm, dry, no rash. NEURO: Alert and oriented x3. PSYCH: Normal mood and affect. Course Vital Signs Vital signs: Vital Signs Temperature 97.2 F L 03/02/22 08:24 Pulse Rate 109 H 03/02/22 08:24 Respiratory Rate 16 03/02/22 08:24 Blood Pressure 144/86 H 03/02/22 08:24 Pulse Oximetry 99 03/02/22 08:24 Oxygen Delivery Room Air 03/02/22 08:24 Temperature 97.2 F L 03/02/22 08:24 Pulse Rate 109 H 03/02/22 08:24 Respiratory Rate 16 03/02/22 08:24 Blood Pressure 144/86 H 03/02/22 08:24 Pulse Oximetry 99 03/02/22 08:24 Oxygen Delivery Room A
== END 2022-03-02 14:10 | disposition home or self-care (01) ==
PROVIDERS: Emergency Provider Emergency Medicine; PCP Student in an Organized Health Care Education/Training Program
DX: S39.012A Strain of muscle, fascia and tendon of lower back, initial encounter (principal); K52.9 Noninfective gastroenteritis and colitis, unspecified; Z20.822 Contact with and (suspected) exposure to COVID-19; K21.9 Gastro-esophageal reflux disease without esophagitis; K58.9 Irritable bowel syndrome, unspecified; M19.072 Primary osteoarthritis, left ankle and foot; F41.9 Anxiety disorder, unspecified; F32.A Depression, unspecified; R82.998 Other abnormal findings in urine; Z87.891 Personal history of nicotine dependence
CPT/HCPCS: 36415; 80053; 81001; 81025; 83690; 85025; 87086; 87088; 87636; 96361; 96372; 96374; 99284; J0500; J2405; J7030